=== PATIENT | male | born 2000 | race Caucasian/White ===

== ENCOUNTER 2019-03-16 07:59 | Day surgery (SDC) | payer OTHER ==
[2019-03-15 12:40] VITALS: BMI 23.7
[2019-03-16 11:24] VITALS: BP 117/71; PULSE 62; TEMP 98.2
--- NOTE | 2019-03-17 18:01 | PATH ---
Surgical Pathology Report Patient Name: MARGOTH CONNOLLY [facility]. Rec. #: [id number] /Age/Gender: 2000 (Age: 18) / M Account: [id number] Location: U-ENDOSCOPY Taken: 03/16/2019 Received: 03/16/2019 Reported: 03/17/2019 Physicians: Lopez Thapa D.O. Specimen(s) Received A: ANTRUM ERYTHEMA B: STOMACH BODY EROSION C: STOMACH BODY Clinical History GERD Postoperative diagnosis: Gastritis Final Diagnosis A. STOMACH, ANTRUM, ERYTHEMA, BIOPSY: GASTRIC ANTRAL MUCOSA WITH MILD TO MODERATE CHRONIC GASTRITIS, MILD VASCULAR CONGESTION, AND FOCAL EXTRAVASATION OF RED BLOOD CELLS WITHIN LAMINA PROPRIA. IMMUNOHISTOCHEMICAL STAIN FOR H. PYLORI IS NEGATIVE. B. STOMACH, BODY, EROSION, BIOPSY: GASTRIC BODY, MUCOSA WITH MILD CHRONIC GASTRITIS AND FOCAL EROSION. IMMUNOHISTOCHEMICAL STAIN FOR H. PYLORI IS NEGATIVE. C. STOMACH, BODY, BIOPSY: GASTRIC BODY MUCOSA WITH MILD CHRONIC GASTRITIS. IMMUNOHISTOCHEMICAL STAIN FOR H. PYLORI IS NEGATIVE. Electronically Signed Remedios Cameron M.D. Gross Description A. Received in formalin, labeled "antral erythema biopsy" are 6 cortes, irregular portions of soft tissue ranging from 0.1-0.4 cm. in greatest dimension. The specimens are submitted in toto in one cassette. B. Received in formalin, labeled "body of stomach erosion" are 2 cortes, irregular portions of soft tissue measuring 0.2 and 0.3 cm. in greatest dimension. The specimens are submitted in toto in one cassette. C. Received in formalin, labeled "body of stomach biopsy" are 3 cortes, irregular portions of soft tissue ranging from 0.2-0.3 cm. in greatest dimension. The specimens are submitted in toto in one cassette. DL/03/16/201903/16/2019
== END 2019-03-16 11:00 | disposition home or self-care (01) ==
LOC: JASU-ENDO 07:59
PROVIDERS: ATTEND Internal Medicine Gastroenterology
PROC: 0DB68ZX Excision of Stomach, Via Natural or Artificial Opening Endoscopic, Diagnostic (ICD-10-PCS; principal; 2019-03-16 09:00)
DX: K25.9 Gastric ulcer, unspecified as acute or chronic, without hemorrhage or perforation (principal); K29.50 Unspecified chronic gastritis without bleeding
CPT/HCPCS: 36415; 82941; 88305-TC; 88342-TC